=== PATIENT | female | born 1960 | race Caucasian/White ===

== ENCOUNTER 2018-03-13 11:00 | Outpatient (CLI) | payer BC | END 2018-03-13 11:01 | disposition home or self-care (01) | LOC: BICMAMMO 11:00 | PROVIDERS: ATTEND Family Medicine | DX: Z12.31 Encounter for screening mammogram for malignant neoplasm of breast (principal) | CPT/HCPCS: 77063; 77067 ==

== ENCOUNTER 2018-11-28 14:30 | Outpatient (CLI) | payer BC ==
--- NOTE | 2018-11-28 16:22 | RAD ---
CERVICAL SPINE SIX VIEWS INCLUDING FLEXION AND EXTENSION AND OBLIQUE VIEWS: History: Neck pain without known injury. FINDINGS: Multilevel disc osteophytosis changes are noted particularly at C5-6. No prevertebral soft tissue swe lling. No abnormal translation between flexion and extension. IMPRESSION: Cervical spondylosis most marked at C5-6. POS: [facility]
== END 2018-11-28 14:31 | disposition home or self-care (01) ==
LOC: SCSRAD 14:30
PROVIDERS: ATTEND Internal Medicine Rheumatology
DX: M54.2 Cervicalgia (principal); M47.812 Spondylosis without myelopathy or radiculopathy, cervical region
CPT/HCPCS: 72052

== ENCOUNTER 2019-02-07 07:02 | Outpatient (CLI) | payer BC ==
--- NOTE | 2019-02-07 08:02 | MRI ---
MRI Cervical spine without contrast: HISTORY: Neck pain and left arm and chest pain for 2 years. Ankylosing spondylitis of multiple sites. COMPARISON: 04/19/2016. FINDINGS: The craniocervical junction is unremarkable. No significant cord signal abnormality. Paravertebral soft tissues have a normal appearance and normal signal intensity. C1-2: No significant stenosis. C2-3: There is no disc bulge or disc herniation. The central spinal canal and neural foramina are pat ent. C3-4: There is no disc bulge or disc herniation. The central spinal canal and neural foramina are pat ent. C4-5: There is no disc bulge or disc herniation. The central spinal canal and neural foramina are pat ent. C5-6: Again, there is loss of intervertebral disc height with broad-based disc osteophyte complex pre sent and small central disc protrusion. This does result in generalized narrowing of the central spinal canal and mass effect on the anterior aspect of the spinal cord similar to prior exam. The rosi ral foramina are patent at this level. C6-7: Again demonstrated is a posterior midline annular fissure with small central disc protrusion wi th mild effacement of the ventral subarachnoid space. The neural foramina are patent. C7-T1: Facet degenerative changes are again seen consistent spinal canal and neural foramina are yu nt and there is no significant disc bulge or disc herniation. IMPRESSION: 1. Stable MRI cervical spine with small central/right paracentral disc protrusion again resulting in mild mass effect on the anterior aspect of the spinal cord, but there is normal signal intensity in the spinal cord. 2. Prominent facet degenerative changes at the cervicothoracic junction.
== END 2019-02-07 07:03 | disposition home or self-care (01) ==
LOC: SCSMRI 07:02
PROVIDERS: ATTEND Physician Assistant
DX: M45.0 Ankylosing spondylitis of multiple sites in spine (principal); R07.89 Other chest pain; M50.20 Other cervical disc displacement, unspecified cervical region; M47.813 Spondylosis without myelopathy or radiculopathy, cervicothoracic region; G95.89 Other specified diseases of spinal cord; Z79.899 Other long term (current) drug therapy
CPT/HCPCS: 72141

== ENCOUNTER 2022-05-31 09:08 | Outpatient (CLI) | payer BC | END 2022-05-31 09:09 | disposition home or self-care (01) | LOC: BICMAMMO 09:08 | PROVIDERS: ATTEND Internal Medicine Rheumatology | DX: Z13.820 Encounter for screening for osteoporosis (principal); M81.0 Age-related osteoporosis without current pathological fracture; M85.89 Other specified disorders of bone density and structure, multiple sites | CPT/HCPCS: 77080 ==

== ENCOUNTER 2022-11-04 14:04 | Outpatient (CLI) | payer BC | END 2022-11-04 14:05 | disposition home or self-care (01) | LOC: BICMAMMO 14:04 | PROVIDERS: ATTEND Family Medicine | DX: Z12.31 Encounter for screening mammogram for malignant neoplasm of breast (principal) | CPT/HCPCS: 77063; 77067 ==

== ENCOUNTER 2023-05-31 14:00 | Outpatient (CLI) | payer BC | END 2023-05-31 14:01 | disposition home or self-care (01) | LOC: BICMAMMO 14:00 | PROVIDERS: ATTEND Internal Medicine Rheumatology | DX: M81.0 Age-related osteoporosis without current pathological fracture (principal); M85.89 Other specified disorders of bone density and structure, multiple sites; Z79.899 Other long term (current) drug therapy | CPT/HCPCS: 77080 ==

== ENCOUNTER 2024-06-13 15:22 | Emergency (ER) | payer BC ==
[2024-06-13 16:42] LABS: #Basophils 0.07 10x3/uL (0.0-0.2); %Basophils 0.9 % (0.0-1.0); %Eosinophils 1.1 % (0.0-10.0); %Lymphocytes 13.1 % (21.0-51.0); %Monocytes 8.5 % (0.0-10.0); %Neutrophils 75.3 % (42.0-75.0); Hematocrit 34.9 % (36.0-47.0); Hemoglobin 11.8 g/dL (12.0-16.0); Mean Corpuscular HGB CONC 33.8 g/dL (32.0-36.0); Mean Corpuscular Hemoglobin 32.5 pg (27.0-31.0); Mean Corpuscular Volume 96.1 fL (78.0-98.0); Mean Platelet Volume 9.7 fL (7.4-10.4); Platelet Count 335 10x3/uL (130-400); RBC Distribution Width 12.1 % (11.5-14.5); Red Blood Cell (RBC) Count 3.63 mill/uL (4.20-5.40)
[2024-06-13 17:11] LABS: ALT (SGPT) 29 U/L (8-55); AST (SGOT) 27 U/L (5-34); Albumin 3.2 g/dL (3.4-4.8); Alkaline Phosphatase 58 U/L (40-110); Anion Gap 15 mmol/L (10-20); BUN (Urea Nitrogen) 12 mg/dL (9.8-20.1); Bilirubin, Total 0.3 mg/dL (0.2-1.2); Calc. Creatinine Clearance 0 mL/min (70-130); Calcium 9.2 mg/dL (7.8-10.44); Carbon Dioxide 22 mmol/L (23-31); Chloride 105 mmol/L (98-107); Estimated GFR 76; Globulin 3.8 g/dL (2.4-3.5); Glucose 120 mg/dL (80-115); Potassium 3.7 mmol/L (3.5-5.1); Sodium 138 mmol/L (136-145)
[2024-06-13 18:00] LABS: Troponin I Less than 0.010 ng/mL (< 0.028)
== END 2024-06-13 20:13 | disposition home or self-care (01) ==
LOC: ERS 15:22
DX: R07.89 Other chest pain (principal); F43.0 Acute stress reaction
CPT/HCPCS: 36415; 71045; 80053; 84484; 85025; 93005

== ENCOUNTER 2025-06-12 12:18 | Outpatient (CLI) | payer BC | END 2025-06-12 12:19 | disposition home or self-care (01) | LOC: BICMAMMO 12:18 | PROVIDERS: ATTEND Internal Medicine Rheumatology | DX: M81.0 Age-related osteoporosis without current pathological fracture (principal) | CPT/HCPCS: 77080 ==